=== PATIENT | female | born 1970 | race Caucasian/White ===

== ENCOUNTER 2016-11-23 17:38 | Emergency (ER) | payer OTHER ==
[~2016-11-23] VITALS: Ht 162.6 cm; Wt 46.0 kg
[~2016-11-23 17:38] MED LIST: Ambien PO; Ativan PO; Motrin PO; OxyCONTIN PO; Percocet 5/325,Endoc PO; Xanax PO
[2016-11-23] MEDS ORDERED: CARAFATE1 GM PO (18:43)
[2016-11-23 19:13] VITALS: BP 106/67
== END 2016-11-23 19:13 | disposition home or self-care (01) ==
LOC: EME 17:38
DX: Z04.6 Encounter for general psychiatric examination, requested by authority (principal); F41.9 Anxiety disorder, unspecified; Z76.0 Encounter for issue of repeat prescription; R10.9 Unspecified abdominal pain; Z88.6 Allergy status to analgesic agent; Z88.0 Allergy status to penicillin; F17.200 Nicotine dependence, unspecified, uncomplicated
CPT/HCPCS: 99281; 99284

== ENCOUNTER 2017-05-13 09:42 | Emergency (ER) | payer OTHER ==
[~2017-05-13] VITALS: Ht 162.6 cm; Wt 38.9 kg
[~2017-05-13 09:42] MED LIST changes: +CARAFATE1 GM PO
[2017-05-13 15:54] VITALS: BP 104/73
== END 2017-05-13 16:06 | disposition home or self-care (01) ==
LOC: EME 09:42
DX: S30.0XXA Contusion of lower back and pelvis, initial encounter (principal); S20.229A Contusion of unspecified back wall of thorax, initial encounter; S80.12XA Contusion of left lower leg, initial encounter; S80.11XA Contusion of right lower leg, initial encounter; S80.212A Abrasion, left knee, initial encounter; S80.211A Abrasion, right knee, initial encounter; M54.2 Cervicalgia; R51 Headache; M25.511 Pain in right shoulder; M25.512 Pain in left shoulder; Y09 Assault by unspecified means; Z85.43 Personal history of malignant neoplasm of ovary; F17.200 Nicotine dependence, unspecified, uncomplicated
CPT/HCPCS: 72050; 73030; 81003; 99281; 99283